=== PATIENT | male | born 1980 | race Hispanic/Latino ===

== ENCOUNTER 2018-02-08 08:07 | Emergency (ER) | payer BC ==
[2018-02-08] MEDS ORDERED: NA CHLORIDE 0.9% 1,000 ML ONE (08:49)
[2018-02-08] MEDS ORDERED: MORPHINE 4 MG/ML SYR ONE (08:49)
[2018-02-08] MEDS ORDERED: ONDANSETRON 4 MG/2 ML VIAL ONE (08:49)
[2018-02-08 09:06] LABS: Absolute Lymphocytes (CBC) 2.1 K/uL (0.7-4.9); Absolute Monocytes 0.5 K/uL (0.1-1.3); Absolute Neutrophil 4.8 K/uL (1.8-8.0); Hematocrit 44.2 % (39.6-49.0); Lymphocytes % 27.8 % (15.3-44.8); MCH 30.5 pg (27.0-35.0); MPV 9.5 fL (7.6-11.3); Monocytes % 6.8 % (3.3-12.3); RBC Red Blood Cell Count 4.97 M/uL (4.33-5.43)
[2018-02-08 09:08] LABS: ALT/SGPT 24 U/L (12-78); AST/SGOT 19 U/L (15-37); Albumin 3.6 g/dL (3.4-5.0); Alkaline Phosphatase 68 U/L (45-117); BUN Blood Urea Nitrogen 8 mg/dL (7-18); Bicarbonate 26 mmol/L (21-32); Bilirubin Direct 0.2 mg/dL (0-0.2); Bilirubin Total 0.6 mg/dL (0.2-1.0); Glucose Level 103 mg/dL (74-106); Lipase 139 U/L (73-393); Potassium 3.5 mmol/L (3.5-5.1); Protein, Total 7.2 g/dL (6.4-8.2); Sodium Level 142 mmol/L (136-145)
--- NOTE | 2018-02-08 11:06 | RAD REPORT ---
EXAM DESCRIPTION: CTAbdomen Pelvis W Contrast - 02/08/2018 10:47 am CLINICAL HISTORY: Abdominal pain. ABD PAIN COMPARISON: CT ABD PELVIS W CONTRAST dated 09/01/2014 TECHNIQUE: Biphasic CT imaging of the abdomen and pelvis was performed with 100 ml non-ionic IV cont rast. All CT scans are performed using dose optimization technique as appropriate and may include automated exposure control or mA/KV adjustment according to patient size. FINDINGS: The lung bases are clear. The liver demonstrates mild fatty liver. The spleen, pancreas, adrenal glands and kidneys are within normal limits. Gallstones are suspected the gallbladder. No bowel obstruction, free air, free fluid or abscess. The appendix is normal. No evidence of signi ficant lymphadenopathy. No suspicious bony findings. IMPRESSION: Cholelithiasis. Fatty liver.
--- NOTE | 2018-02-08 11:33 | EDPHYS ---
Physician Documentation [facility] Name: Eros Yan Age: 37 yrs Sex: Male : 1980 Arrival Date: 02/08/2018 Time: 08:09 Bed 8 Private MD: Gregor Solano H ED Physician Jose M Rain HPI: 02/08 11:26 This 37 yrs old Male presents to ER via Ambulatory with complaints of gs Abdominal Pain, Bloody Stools. 11:26 The patient presents to the emergency department with nausea, diarrhea, abdominal pain. gs Onset: The symptoms/episode began/occurred 1 month(s) ago, and became persistent. Possible causes: flare up of bowel problem. The symptoms are aggravated by food , The symptoms are alleviated by nothing. Severity of symptoms: At their worst the symptoms were moderate in the emergency department the symptoms are unchanged. The patient has experienced similar episodes in the past, multiple times, chronically. The patient has been recently seen by a physician: a senior construction estimator, scheduled for endoscopy in a couple of weeks. 11:29 Associated signs and symptoms: Pertinent positives: GI bleeding, blood in stool. gs Historical: - Allergies: 09:14 NKA; iw - PMHx: 08:32 Diabetes - NIDDM; High Cholesterol; Ulcers; iw - PSHx: 08:32 Knee surgery; iw - Immunization history:: Adult Immunizations up to date. - Ebola Screening: : Patient negative for fever greater than or equal to 101.5 degrees Fahrenheit, and additional compatible Ebola Virus Disease symptoms Patient denies exposure to infectious person Patient denies travel to an Ebola-affected area in the 21 days before illness onset No symptoms or risks identified at this time. - Social history:: Smoking status: Patient/guardian denies using tobacco, Patient/guardian denies using alcohol. ROS: 11:26 Constitutional: Negative for fever. gs 11:29 All other systems are negative. gs Exam: 11:29 Head/Face: Normocephalic, atraumatic. Eyes: Pupils equal round and reactive to light, gs extra-ocular motions intact. Lids and lashes normal. Conjunctiva and sclera are non-icteric and not injected. Cornea within normal limits. Periorbital areas with no swelling, redness, or edema. ENT: Nares patent. No nasal discharge, no septal abnormalities noted. Tympanic membranes are normal and external auditory canals are clear. Oropharynx with no redness, swelling, or masses, exudates, or evidence of obstruction, uvula midline. Mucous membranes moist. Neck: Trachea midline, no thyromegaly or masses palpated, and no cervical lymphadenopathy. Supple, full range of motion without nuchal rigidity, or vertebral point tenderness. No Meningismus. Chest/axilla: Normal chest wall appearance and motion. Nontender with no deformity. No lesions are appreciated. Cardiovascular: Regular rate and rhythm with a normal S1 and S2. No gallops, murmurs, or rubs. Normal PMI, no JVD. No pulse deficits. Respiratory: Lungs have equal breath sounds bilaterally, clear to auscultation and percussion. No rales, rhonchi or wheezes noted. No increased work of breathing, no retractions or nasal flaring. Back: No spinal tenderness. No costovertebral tenderness. Full range of motion. Skin: Warm, dry with normal turgor. Normal color with no rashes, no lesions, and no evidence of cellulitis. MS/ Extremity: Pulses equal, no cyanosis. Neurovascular intact. Full, normal range of motion. Neuro: Awake and alert, GCS 15, oriented to person, place, time, and situation. Cranial nerves II-XII grossly intact. Motor strength 5/5 in all extremities. Sensory grossly intact. Cerebellar exam normal. Normal gait. 11:29 Constitutional: The patient appears in no acute distress, alert, awake. 11:29 Abdomen/GI: Inspection: abdomen appears normal, Bowel sounds: normal, Palpation: mild abdominal tenderness, in all quadrants, rebound tenderness, is not appreciated. Vital Signs: 08:50 BP 130 / 82; Pulse 71; Resp 18; Temp 98.1(O); Pulse Ox 100% on R/A; Weight 110.22 kg; Height 5 ft. 9 in. (175.26 cm); Pain 10/10; 09:30 BP 134 / 74; Pulse 75; Resp 18; Pulse Ox 100% on R/A; hj 10:07 BP 123 / 78; Pulse 76; Resp 18; Pulse Ox 100% on R/A; hj 11:03 BP 121 / 78; Pulse 75; Resp 18; Pulse Ox 100% on R/A; hj 11:39 BP 123 / 71; Pulse 76; Resp 18; Pulse Ox 100% on R/A; hj 08:50 Body Mass Index 35.88 (110.22 kg, 175.26 cm) MDM: 08:29 Patient medically screened. 11:29 Differential diagnosis: Nonspecific abd pain, viral gastroenteritis, gastroenteritis, gs uc,crohn's. Data reviewed: vital signs, nurses notes. Counseling: I had a detailed discussion with the patient and/or guardian regarding: the historical points, exam findings, and any diagnostic results supporting the discharge/admit diagnosis, lab results, radiology results, the need for outpatient follow up. Response to treatment: the patient's symptoms have markedly improved after treatment. 02/08 08:31 Order name: Basic Metabolic Panel; Complete Time: :22 02/08 08:31 Order name: CBC with Diff; Complete Time: :22 02/08 08:31 Order name: Hepatic Function; Complete Time: 09:22 02/08 08:31 Order name: Lipase; Complete Time: :22 02/08 08:31 Order name: CT Abd/Pelvis - W/Contrast; Complete Time: 11:25 02/08 08:31 Order name: IV Saline Lock; Complete Time: 08:47 02/08 08:31 Order name: Labs collected and sent; Complete Time: 08:47 Administered Medications: 08:46 Drug: NS 0.9% 1000 ml Route: IV; Rate: 1 bolus; Site: left forearm; bp 10:00 Follow up: IV Status: Completed infusion; IV Intake: 1000ml 08:46 Drug: morphine 4 mg Route: IVP; Site: left forearm; bp 09:30 Follow up: Response: No adverse reaction; Pain is decreased 08:47 Drug: Zofran 4 mg Route: IVP; Site: left forearm; bp 09:30 Follow up: Response: No adverse reaction; Nausea is decreased Disposition: 02/08/18 11:32 Discharged to Home. Impression: Diarrhea, unspecified, Generalized abdominal pain. - Condition is Stable. - Discharge Instructions: Abdominal Pain, Adult, Chronic Diarrhea. - Prescriptions for Zofran 4 mg Oral Tablet - take 1 tablet by ORAL route every 12 hours As needed; 12 tablet. - Medication Reconciliation Form, Thank You Letter, Antibiotic Education, Prescription Opioid Use form. - Follow up: Private Physician; When: 2 - 3 days; Reason: Re-evaluation by your physician. Signatures: Dispatcher [employer] Yvette Arambula RN RN Silverio Sultana RN RN hj Starr, Gregory, MD MD gs Peltier, Brian, RN RN bp Corrections: (The following items were deleted from the chart) 11:53 11:32 02/08/2018 11:32 Discharged to Home. Impression: Diarrhea, unspecified; hj Generalized abdominal pain. Condition is Stable. Forms are Medication Reconciliation Form, Thank You Letter, Antibiotic Education, Prescription Opioid Use. Follow up: Private Physician; When: 2 - 3 days; Reason: Re-evaluation by your physician. gs
--- NOTE | 2018-02-08 11:33 | ER ---
Nurse's Notes [facility] Name: Eros Yan Age: 37 yrs Sex: Male : 1980 Arrival Date: 02/08/2018 Time: 08:09 Bed 8 Private MD: Gregor Solano H Diagnosis: Diarrhea, unspecified;Generalized abdominal pain Presentation: 02/08 08:27 Presenting complaint: Patient states: has hx of colitis,has had bloody stool for a iw month, dark,watery,2 days ago it was bright red,is due for a colonoscopy and EGD on 03-02-18, see GI in clear [place], also has upper abd pain. Transition of care: patient was not received from another setting of care. Onset of symptoms was January 2018. Risk Assessment: Do you want to hurt yourself or someone else? Patient reports no desire to harm self or others. Initial Sepsis Screen: Does the patient meet any 2 criteria? No. Patient's initial sepsis screen is negative. Does the patient have a suspected source of infection? No. Patient's initial sepsis screen is negative. Care prior to arrival: None. 08:27 Method Of Arrival: Ambulatory iw 08:27 Acuity: DUTCH 3 iw Triage Assessment: 08:48 General: Appears in no apparent distress. uncomfortable, Behavior is calm, cooperative, hj appropriate for age. Pain: Complains of pain in abdomen. GI: Reports lower abdominal pain, bloody stool, nausea. Historical: - Allergies: 09:14 NKA; iw - PMHx: 08:32 Diabetes - NIDDM; High Cholesterol; Ulcers; iw - PSHx: 08:32 Knee surgery; iw - Immunization history:: Adult Immunizations up to date. - Ebola Screening: : Patient negative for fever greater than or equal to 101.5 degrees Fahrenheit, and additional compatible Ebola Virus Disease symptoms Patient denies exposure to infectious person Patient denies travel to an Ebola-affected area in the 21 days before illness onset No symptoms or risks identified at this time. - Social history:: Smoking status: Patient/guardian denies using tobacco, Patient/guardian denies using alcohol. Screenin:48 Abuse screen: Denies threats or abuse. Denies injuries from another. Nutritional hj screening: No deficits noted. Tuberculosis screening: No symptoms or risk factors identified. Fall Risk None identified. Assessment: 08:49 GI: Bowel sounds present X 4 quads. Abd is soft Abd is non tender. hj 08:51 General: Appears in no apparent distress. uncomfortable, Behavior is calm, cooperative, hj appropriate for age. Pain: Complains of pain in abdomen. Neuro: Level of Consciousness is awake, alert, obeys commands, Oriented to person, place, time, situation, Appropriate for age. Cardiovascular: Capillary refill < 3 seconds Patient's skin is warm and dry. Respiratory: Airway is patent Respiratory effort is even, unlabored, Respiratory pattern is regular, symmetrical. GI: Reports lower abdominal pain, bloody stool, nausea. : No signs and/or symptoms were reported regarding the genitourinary system. EENT: No signs and/or symptoms were reported regarding the EENT system. Derm: No signs and/or symptoms reported regarding the dermatologic system. Musculoskeletal: No signs and/or symptoms reported regarding the musculoskeletal system. 09:01 Reassessment: pt finished contrast; net technical architect informed;. hj 09:29 Reassessment: Patient and/or family updated on plan of care and expected duration. Pain hj level reassessed. Patient is alert, oriented x 3, equal unlabored respirations, skin warm/dry/pink. awaiting results and POC:. 10:07 Reassessment: Patient and/or family updated on plan of care and expected duration. Pain hj level reassessed. Patient is alert, oriented x 3, equal unlabored respirations, skin warm/dry/pink. awaiting CT:. 10:51 Reassessment: PT RETURNED FROM CT. bp 11:37 Reassessment: provider in room; D/C instructions given;. hj Vital Signs: 08:50 BP 130 / 82; Pulse 71; Resp 18; Temp 98.1(O); Pulse Ox 100% on R/A; Weight 110.22 kg; hj Height 5 ft. 9 in. (175.26 cm); Pain 1010; 09:30 BP 134 / 74; Pulse 75; Resp 18; Pulse Ox 100% on R/A; hj 10:07 BP 123 / 78; Pulse 76; Resp 18; Pulse Ox 100% on R/A; hj 11:03 BP 121 / 78; Pulse 75; Resp 18; Pulse Ox 100% on R/A; hj 11:39 BP 123 / 71; Pulse 76; Resp 18; Pulse Ox 100% on R/A; hj 08:50 Body Mass Index 35.88 (110.22 kg, 175.26 cm) ED Course: 08:09 Patient arrived in ED. mr 08:10 Gregor Solano DO is Private Physician. mr 08:19 oJse M Rain MD is Attending Physician. gs 08:24 Silverio Morales, LAKESHA is Primary Nurse. hj 08:31 Triage completed. iw 08:45 Initial lab(s) drawn, by me, sent to lab. Inserted saline lock: 22 gauge in left hj forearm, using aseptic technique. Blood collected. 08:49 Arm band placed on right wrist. hj 08:50 Patient has correct armband on for positive identification. Placed in gown. Bed in low hj position. Call light in reach. Side rails up X 1. 10:[address] via wheelchair. vr 10:45 CT completed. Patient tolerated procedure well. Patient moved back from CT. vr 10:46 CT Abd/Pelvis - W/Contrast In Process Unspecified. EDMS 11:41 No provider procedures requiring assistance completed. IV discontinued, intact, hj bleeding controlled, No redness/swelling at site. Pressure dressing applied. Administered Medications: 08:46 Drug: NS 0.9% 1000 ml Route: IV; Rate: 1 bolus; Site: left forearm; bp 10:00 Follow up: IV Status: Completed infusion; IV Intake: 1000ml hj 08:46 Drug: morphine 4 mg Route: IVP; Site: left forearm; bp 09:30 Follow up: Response: No adverse reaction; Pain is decreased hj 08:47 Drug: Zofran 4 mg Route: IVP; Site: left forearm; bp 09:30 Follow up: Response: No adverse reaction; Nausea is decreased hj Intake: 10:00 IV: 1000ml; Total: 1000ml. Outcome: 11:32 Discharge ordered by . gs 11:41 Discharged to home ambulatory, with family. hj 11:41 Condition: stable 11:41 Discharge instructions given to patient, family, Instructed on discharge instructions, follow up and referral plans. medication usage, Demonstrated understanding of instructions, follow-up care, medications, Prescriptions given X 1. 11:53 Patient left the ED. Signatures: Dispatcher [employer] EDAZ Beatris Bradford mr Yvette Thompson, RN RN Leslie Covarrubias Henry, RN RN Jose M Mahoney MD MD gs Peltier, Brian, RN RN bp
[2018-02-08 11:59] VITALS: TEMP 98.1; O2SAT 100
[2018-02-08 12:04] VITALS: BP 123/71
== END 2018-02-08 11:53 | disposition home or self-care (01) ==
LOC: ER 08:07
DX: R19.7 Diarrhea, unspecified (principal)
CPT/HCPCS: 36415; 74177; 80048; 80076; 83690; 85025; 96361; 96374; 96375; 99284; J2405; J7030; Q9967

== ENCOUNTER 2018-09-13 10:35 | Inpatient (IN) | payer BC ==
[2018-09-13] MEDS ORDERED: ONDANSETRON 4 MG/2 ML VIAL ONE (12:02)
[2018-09-13] MEDS ORDERED: MEPERIDINE HCL 25 MG/0.5 ML ONE ×3 (12:02→17:55)
[2018-09-13] MEDS ORDERED: NA CHLORIDE 0.9% 1,000 ML ONE (12:02)
[2018-09-13 12:10] LABS: Absolute Lymphocytes (CBC) 1.4 K/uL (0.7-4.9); Absolute Monocytes 0.4 K/uL (0.1-1.3); Absolute Neutrophil 13.1 K/uL (1.8-8.0); Basophils % 0.7 % (0-1.3); Hematocrit 47.3 % (39.6-49.0); Lymphocytes % 9.1 % (15.3-44.8); MPV 9.4 fL (7.6-11.3); Monocytes % 2.7 % (3.3-12.3); RBC Red Blood Cell Count 5.42 M/uL (4.33-5.43)
[2018-09-13 12:24] LABS: ALT/SGPT 31 U/L (12-78); AST/SGOT 17 U/L (15-37); Albumin 4.4 g/dL (3.4-5.0); Alkaline Phosphatase 90 U/L (45-117); BUN Blood Urea Nitrogen 10 mg/dL (7-18); Bicarbonate 26 mmol/L (21-32); Bilirubin Direct 0.1 mg/dL (0-0.2); Bilirubin Total 0.6 mg/dL (0.2-1.0); Glucose Level 122 mg/dL (74-106); Lipase 97 U/L (73-393); Potassium 4.1 mmol/L (3.5-5.1); Protein, Total 8.8 g/dL (6.4-8.2); Sodium Level 138 mmol/L (136-145)
--- NOTE | 2018-09-13 12:26 | RAD REPORT ---
EXAM DESCRIPTION: US - Abdomen Exam Limited - 09/13/2018 11:52 am CLINICAL HISTORY: Abd pain;Nausea / vomiting COMPARISON: No comparisons FINDINGS: The gallbladder demonstrates multiple shadowing gallstones. No pericholecystic fluid or ga llbladder wall thickening. The common bile duct is normal measuring 5-6 mm.. The liver demonstrates no findings of intrahepatic biliary dilatation. IMPRESSION: Cholelithiasis.
[2018-09-13 12:48] LABS: Blood Morphology Comment NOT SEEN (NOT SEEN); Platelet Estimate ADEQ; Urine White Blood Cell Casts OK
--- NOTE | 2018-09-13 13:59 | RAD REPORT ---
EXAM DESCRIPTION: CT - Abdomen Pelvis W Contrast - 09/13/2018 1:46 pm CLINICAL HISTORY: Abdominal pain. Epigastric pain COMPARISON: February 2018 TECHNIQUE: Computed axial tomography of the abdomen and pelvis was obtained. 100 cc Isovue-300 is ad ministered intravenously. Oral contrast was given. All CT scans are performed using dose optimization technique as appropriate and may include automated exposure control or mA/KV adjustment according to patient size. FINDINGS: Gallstones. Gallbladder wall is not thickened. Biliary tree normal caliber Mild fatty liver The liver, spleen, pancreas, adrenals and kidneys appear unremarkable. The appendix is normal caliber. There is no evidence of diverticulitis A 4.5 centimeter soft tissue structure is present within the posterior gastric fundus IMPRESSION: Cholelithiasis without evidence cholecystitis 4.5 centimeter soft tissue structure within the posterior gastric fundus may represent recently inges [employer] food. If the patient has not recently eaten then this could represent a mass.
--- NOTE | 2018-09-13 15:12 | ER ---
Nurse's Notes [facility] Name: Eros Yan Age: 38 yrs Sex: Male : 1980 Arrival Date: 09/13/2018 Time: 10:36 Bed 26 Private MD: Gregor Solano H Diagnosis: Cholelithiasis;Gastric mass;Intractable abdominal pain Presentation: 09/13 10:56 Presenting complaint: Patient states: epigastric pain and vomiting x 1 day. Denies sv nausea and dizziness. Transition of care: patient was not received from another setting of care. Onset of symptoms was September 12, 2018. Initial Sepsis Screen: Does the patient meet any 2 criteria? No. Patient's initial sepsis screen is negative. Does the patient have a suspected source of infection? No. Patient's initial sepsis screen is negative. Care prior to arrival: None. 10:56 Method Of Arrival: Ambulatory sv 10:56 Acuity: DUTCH 3 sv 16:57 Risk Assessment: Do you want to hurt yourself or someone else? Patient reports no rv desire to harm self or others. Historical: - Allergies: 10:57 NKA; sv - PMHx: 10:57 Diabetes - NIDDM; High Cholesterol; Ulcers; Ulcerative colitis; sv - PSHx: 10:57 Knee surgery; sv - Immunization history:: Adult Immunizations up to date. - Social history:: Smoking status: unknown. - Family history:: not pertinent. - Ebola Screening: : No symptoms or risks identified at this time. - Hospitalizations: : No recent hospitalization is reported. Screenin:55 Abuse screen: Denies threats or abuse. Denies injuries from another. Nutritional rv screening: No deficits noted. Tuberculosis screening: No symptoms or risk factors identified. Fall Risk None identified. Assessment: 11:52 General: Appears in no apparent distress. comfortable, Behavior is calm, cooperative, aj appropriate for age. Pain: Complains of pain in epigastric area, right upper quadrant and left upper quadrant. Neuro: Level of Consciousness is awake, alert, obeys commands, Oriented to person, place, time, situation, Appropriate for age. Respiratory: Airway is patent Respiratory effort is even, unlabored, Respiratory pattern is regular, symmetrical. GI: Abdomen is non-distended, obese, Bowel sounds present X 4 quads. Abd is soft and non tender X 4 quads. Derm: Skin is intact, is healthy with good turgor, Skin is pink, warm \T\ dry. normal. 16:58 Reassessment: Patient appears in no apparent distress at this time. Patient and/or rv family updated on plan of care and expected duration. Pain level reassessed. Patient is alert, oriented x 3, equal unlabored respirations, skin warm/dry/pink. PAIN STARTING TO COMEBACK. PATIENT IS FOR ADMISSION. Patient states symptoms have improved. Vital Signs: 10:57 BP 150 / 75; Pulse 73; Resp 20; Temp 98.1; Pulse Ox 98% ; Weight 117.93 kg; Height 5 sv ft. 8 in. (172.72 cm); Pain 10/10; 12:34 BP 137 / 77; Pulse 62; Resp 20; Temp 98.4(O); Pulse Ox 100% ; lt1 13:52 BP 137 / 91; Pulse 66; Resp 19; Pulse Ox 100% on R/A; aj 16:55 Temp 99.1(O); lt1 10:57 Body Mass Index 39.53 (117.93 kg, 172.72 cm) sv ED Course: 10:36 Patient arrived in ED. mr 10:36 Gregor Solano DO is Private Physician. mr 10:56 Triage completed. sv 10:57 Arm band placed on. sv 11:28 Ezra Clay MD is Attending Physician. rn 11:41 Dilma Reeder RN is Primary Nurse. aj 11:52 US Abdomen Limited In Process Unspecified. EDMS 11:59 Initial lab(s) drawn, by me, sent to lab. Inserted saline lock: 22 gauge in left. lt1 13:40 CT completed. Patient tolerated procedure well. Patient moved to CT via wheelchair. ls3 Patient moved back from CT. 13:45 CT Abd/Pelvis - W/Contrast In Process Unspecified. EDMS 15:00 Patient has correct armband on for positive identification. Bed in low position. Call rv light in reach. Side rails up X 1. Adult w/ patient. 15:00 Pulse ox on. NIBP on. rv 15:10 Samantha Alcala MD is Hospitalizing Provider. rn 17:52 No provider procedures requiring assistance completed. Patient admitted, IV remains in rv place. Administered Medications: 12:00 Drug: Zofran 4 mg Route: IVP; Site: left antecubital; aj 13:40 Follow up: Response: Nausea is decreased aj 12:00 Drug: NS 0.9% 1000 ml Route: IV; Rate: 1000 ml; Site: left antecubital; aj 16:00 Follow up: IV Status: Completed infusion; IV Intake: 1000ml rv 12:36 Drug: Demerol 25 mg Route: IVP; Site: left antecubital; aj 13:39 Follow up: Response: Pain is decreased aj 14:24 Drug: Demerol 25 mg Route: IVP; Site: left antecubital; aj 16:00 Follow up: Response: Pain is decreased rv 16:45 Drug: Demerol 25 mg Route: IVP; Site: left antecubital; rv 17:52 Follow up: Response: Medication administered at discharge. rv Intake: 16:00 IV: 1000ml; Total: 1000ml. rv Outcome: 15:11 Decision to Hospitalize by Provider. rn 17:52 Admitted to Med/surg accompanied by tech, via wheelchair, room 229, with chart, Report rv called to [id number] 17:52 Condition: good 17:52 Instructed on the need for admit. 17:53 Patient left the ED. rv Signatures: Dispatcher [employer] EDNohemy Donald RN RN sv Myers, Amanda, RN RN aj Rivera, Mary mr Ezra Clay MD MD rn Vicente, Ronaldo, RN RN rv Siler, Lynzie ls3 Sabina Zayas lt1 Corrections: (The following items were deleted from the chart) 10:58 10:57 Pulse 73bpm; Resp 20bpm; Pulse Ox 98%; Temp 98.1F; 117.93 kg; Height 5 ft. 8 in.; sv BMI: 39.5; Pain 10/10; sv
--- NOTE | 2018-09-13 15:12 | EDPHYS ---
Physician Documentation [facility] Name: Eros Yan Age: 38 yrs Sex: Male : 1980 Arrival Date: 09/13/2018 Time: 10:36 Bed 26 Private MD: Gregor Solano H ED Physician Ezra Clay HPI: 09/13 12:46 This 38 yrs old Male presents to ER via Ambulatory with complaints of rn Abdominal Pain. 12:46 The patient presents with abdominal pain in the epigastric area. Onset: The rn symptoms/episode began/occurred last night. The symptoms do not radiate. Associated signs and symptoms: Pertinent positives: nausea and vomiting, Pertinent negatives: diarrhea, dysuria, fever, hematuria, shortness of breath, testicular pain, vomiting blood. Modifying factors: The symptoms are alleviated by nothing, the symptoms are aggravated by nothing. Severity of pain: At its worst the pain was moderate in the emergency department the pain is unchanged. The patient has experienced similar episodes in the past. Reports epigastric pain since last night, + vomiting, no diarrhea, no blood in emesis or stool. Reports 1 doctor told him he had ulcerative colitis, another GI doctor told him doesn't have UC just infection. . Historical: - Allergies: 10:57 NKA; sv - PMHx: 10:57 Diabetes - NIDDM; High Cholesterol; Ulcers; Ulcerative colitis; sv - PSHx: 10:57 Knee surgery; sv - Immunization history:: Adult Immunizations up to date. - Social history:: Smoking status: unknown. - Family history:: not pertinent. - Ebola Screening: : No symptoms or risks identified at this time. - Hospitalizations: : No recent hospitalization is reported. ROS: 12:46 Constitutional: Negative for fever, chills, and weight loss, Eyes: Negative for injury, rn pain, redness, and discharge, Neck: Negative for injury, pain, and swelling, Cardiovascular: Negative for chest pain, palpitations, and edema, Respiratory: Negative for shortness of breath, cough, wheezing, and pleuritic chest pain, Abdomen/GI: + abd pain/nausea/vomiting MS/Extremity: Negative for injury and deformity, Skin: Negative for injury, rash, and discoloration, Neuro: Negative for headach, numbness, tingling, and seizure. Exam: 12:46 Constitutional: This is a well developed, well nourished patient who is awake, alert, rn appears uncomfortable Head/Face: Normocephalic, atraumatic. Eyes: Pupils equal round and reactive to light, extra-ocular motions intact. Lids and lashes normal. Conjunctiva and sclera are non-icteric and not injected. Cornea within normal limits. Periorbital areas with no swelling, redness, or edema. ENT: MMM Respiratory: No increased work of breathing, no retractions or nasal flaring. Abdomen/GI: soft, mild epigastric/RUQ/LUQ tenderness MS/ Extremity: Pulses equal, no cyanosis. Neurovascular intact. Full, normal range of motion. Equal circumference. Neuro: Awake and alert, GCS 15, oriented to person, place, time, and situation. Cranial nerves II-XII grossly intact. Motor strength 5/5 in all extremities. Sensory grossly intact. Cerebellar exam normal. Normal gait. Vital Signs: 10:57 BP 150 / 75; Pulse 73; Resp 20; Temp 98.1; Pulse Ox 98% ; Weight 117.93 kg; Height 5 sv ft. 8 in. (172.72 cm); Pain 10/10; 12:34 BP 137 / 77; Pulse 62; Resp 20; Temp 98.4(O); Pulse Ox 100% ; lt1 13:52 BP 137 / 91; Pulse 66; Resp 19; Pulse Ox 100% on R/A; aj 16:55 Temp 99.1(O); lt1 10:57 Body Mass Index 39.53 (117.93 kg, 172.72 cm) sv MDM: 11:28 Patient medically screened. rn 15:08 Differential diagnosis: cholecystitis, Cholelithiasis, gastritis, gastroesophageal rn reflux disease, pancreatitis, Peptic Ulcer Disease. Data reviewed: vital signs, nurses notes, lab test result(s), radiologic studies, CT scan, ultrasound, and as a result, I will admit patient. Counseling: I had a detailed discussion with the patient and/or guardian regarding: the historical points, exam findings, and any diagnostic results supporting the discharge/admit diagnosis, lab results, radiology results, the need for further work-up and treatment in the hospital. Response to treatment: the patient's symptoms have mildly improved after treatment, and as a result, I will admit patient. ED course: Admitted to Dr. Alcala for cholelithiasis and possible gastric mass. Will admit for GI and surgical consult. . 09/13 11:35 Order name: Basic Metabolic Panel; Complete Time: 14:07 rn 09/13 11:35 Order name: CBC with Diff; Complete Time: 14:07 rn 09/13 11:35 Order name: Hepatic Function; Complete Time: 14:07 rn 09/13 11:35 Order name: Lipase; Complete Time: 14:07 rn 09/13 11:35 Order name: US Abdomen Limited; Complete Time: 14:07 rn 09/13 12:17 Order name: CBC Smear Scan; Complete Time: 14:07 EDMS 09/13 11:35 Order name: IV Saline Lock; Complete Time: 12:00 rn 09/13 11:35 Order name: Labs collected and sent; Complete Time: 12:00 rn 09/13 11:35 Order name: CT Abd/Pelvis - W/Contrast; Complete Time: 14:07 rn Administered Medications: 12:00 Drug: Zofran 4 mg Route: IVP; Site: left antecubital; aj 13:40 Follow up: Response: Nausea is decreased aj 12:00 Drug: NS 0.9% 1000 ml Route: IV; Rate: 1000 ml; Site: left antecubital; aj 16:00 Follow up: IV Status: Completed infusion; IV Intake: 1000ml rv 12:36 Drug: Demerol 25 mg Route: IVP; Site: left antecubital; aj 13:39 Follow up: Response: Pain is decreased aj 14:24 Drug: Demerol 25 mg Route: IVP; Site: left antecubital; aj 16:00 Follow up: Response: Pain is decreased rv 16:45 Drug: Demerol 25 mg Route: IVP; Site: left antecubital; rv 17:52 Follow up: Response: Medication administered at discharge. rv Disposition: 09/13/18 15:11 Hospitalization ordered by Samantha Aclala for Inpatient Admission. Preliminary diagnosis are Cholelithiasis, Gastric mass, Intractable abdominal pain. - Bed requested for Telemetry/MedSurg (Inpatient). - Status is Inpatient Admission. rv - Condition is Stable. - Problem is new. - Symptoms are unchanged. UTI on Admission? No Signatures: Dispatcher [employer] EDMS Nohemy Akbar, RN Lashonda Caruso, RN Dilma Kelly, RN Ezra Osorio MD MD rn Vicente, Ronaldo, RN RN rv Corrections: (The following items were deleted from the chart) 16:45 15:11 Hospitalization Ordered by Samantha Alcala MD for Inpatient Admission. Preliminary dw diagnosis is Cholelithiasis; Gastric mass; Intractable abdominal pain. Bed requested for Telemetry/MedSurg (Inpatient). Status is Inpatient Admission. Condition is Stable. Problem is new. Symptoms are unchanged. UTI on Admission? No. rn 17:17 16:45 09/13/2018 15:11 Hospitalization Ordered by Samantha Alcala MD for Inpatient dw Admission. Preliminary diagnosis is Cholelithiasis; Gastric mass; Intractable abdominal pain. Bed requested for Telemetry/MedSurg (Inpatient). Status is Inpatient Admission. Condition is Stable. Problem is new. Symptoms are unchanged. UTI on Admission? No. dw 17:53 17:17 09/13/2018 15:11 Hospitalization Ordered by Samantha Alcala MD for Inpatient rv Admission. Preliminary diagnosis is Cholelithiasis; Gastric mass; Intractable abdominal pain. Bed requested for Telemetry/MedSurg (Inpatient). Status is Inpatient Admission. Condition is Stable. Problem is new. Symptoms are unchanged. UTI on Admission? No. dw
[2018-09-13] MEDS ORDERED: ONDANSETRON 4 MG/2 ML VIAL IV PRN (17:41)
[2018-09-13 18:08] VITALS: BMI 39.5
[2018-09-13] MEDS: NA CHLORIDE 0.9% 1,000 ML IV SCH (18:13)
--- NOTE | 2018-09-13 19:07 | P.HP ---
Certification for Inpatient Patient admitted to: Observation With expected LOS: <2 Midnights Practitioner: I am a practitioner with admitting privileges, knowledge of patient current condition, hospital course, and medical plan of care. Services: Services provided to patient in accordance with Admission requirements found in Title 42 Section 412.3 of the Code of Federal Regulations Patient History Date of Service: 09/13/18 Reason for admission: Abdominal pain History of Present Illness: This is a 38-year-old male with a questionable history of ulcerative colitis admitted for epigastric pain. Per patient, this is the upper abdomen/ midepigastric pain that started a few days ago that has been progressively worsening. His describes this as a throbbing type and pain, no radiation. Associated with nausea and vomiting. States that the vomitus is nonbloody and has had a couple episodes throughout the day. Last episode was 02/1930 this morning. Also complaining of intermittent diarrhea that is nonbloody, watery and mucousy. Denies any chest pain, dizziness, headache, vision changes, or complaints. He came to the ER and his GI doctor recommended him getting a HIDA scan. He currently sees in [place] for his gastroenterology. In the ER, he was hemodynamically stable, lab work was fairly unremarkable. Lipase is normal. Abdominal ultrasound was positive for cholelithiasis, no cholecystitis and no common bile duct dilatation. His CT scan abdomen was positive for cholelithiasis without cholecystitis along with a 4.5 cm soft tissue structure within the posterior gastric fundus - ingested food versus mass. He received Demerol 25 mg x2, Zofran and IV fluids. At the time of my exam, he is alert oriented x3, sleeping comfortably in no acute distress. He was hemodynamically stable. He was admitted for further GI workup and management. Allergies No Known Drug Allergies Allergy (Verified 06/27/16 08:00) Unknown Home medications list reviewed: Yes Home Medications: NK [No Home Meds] 09/13/18 - Past Medical/Surgical History Has patient received pneumonia vaccine in the past: No Diabetic: No -: borderline diabetic -: high cholesterol - Family History Mother -: Diabetes - Social History Smoking Status: Never smoker Alcohol use: No CD- Drugs: No Caffeine use: No Place of Residence: Home Review of Systems 10-point ROS is otherwise unremarkable Physical Examination - Vital Signs Temperature: 99.2 F Blood Pressure: 143/67 Pulse: 63 Respirations: 16 Pulse Ox (%): 98 - Physical Exam General: Alert, In no apparent distress, Obese HEENT: Atraumatic, PERRLA, Mucous membr. moist/pink, EOMI, Sclerae nonicteric Neck: Supple, 2+ carotid pulse no bruit, No LAD, Without JVD or thyroid abnormality Respiratory: Clear to auscultation bilaterally, Normal air movement Cardiovascular: Regular rate/rhythm, Normal S1 S2 Gastrointestinal: Normal bowel sounds, Tenderness Musculoskeletal: No tenderness Integumentary: No rashes Neurological: Normal gait, Normal speech, Normal strength at 5/5 x4 extr, Normal tone, Normal affect Lymphatics: No axilla or inguinal lymphadenopathy - Studies Laboratory Data (last 24 hrs) 09/13/18 11:56: WBC 15.0 H, Hgb 16.4, Hct 47.3, Plt Count 331 09/13/18 11:56: Sodium 138, Potassium 4.1, BUN 10, Creatinine 0.84, Glucose 122 H, Total Bilirubin 0.6, AST 17, ALT 31, Alkaline Phosphatase 90, Lipase 97 Assessment and Plan - Problems (Diagnosis) (1) Abdominal pain Current Visit: Yes Status: Acute Plan: Unsure of etiology, though this could be secondary to the cholelithiasis versus gastritis versus reflux Discussed case with Dr. Farley, he will see patient tomorrow. Pain control with IV pain medication Zofran for nausea Continue to keep NPO Qualifiers: Abdominal location: epigastric Qualified Code(s): R10.13 - Epigastric pain (2) Abnormal abdominal CT scan Current Visit: Yes Status: Acute Plan: Noted to have a 4.5 cm soft tissue structure within the posterior gastric fundus - ingested food versus mass. Patient with abdominal CT scan lash year with cholelithiasis, no mass. Patient states that he had an endoscopy lash years well, not suspicious for any masses of that time either. (3) Leukocytosis Current Visit: Yes Status: Acute Plan: Likely reactive versus dehydration Will continue IV fluids and continue to monitor. Qualifiers: Leukocytosis type: unspecified Qualified Code(s): D72.829 - Elevated white blood cell count, unspecified (4) Obesity (BMI 35.0-39.9 without comorbidity) Current Visit: No Status: Chronic (5) Diabetes mellitus Current Visit: No Status: Chronic Plan: Accu-Cheks and mild sliding scale insulin. Will continue to monitor and adjust as needed Qualifiers: Diabetes mellitus type: type 2 Diabetes mellitus halfway insulin use: without halfway use (6) Hyperlipidemia Current Visit: Yes Status: Acute - Plan DVT prophylaxis: None,encouraged ambulation GI prophylaxis: Protonix Diet:, NPO Disposition: Admit to floor for observation. Pending GI evaluation. Anticipate discharge in the next 24-48 hr pending clinical improvement - Advance Directives Does patient have a Living Will: No Does patient have a Durable POA for Healthcare: No
[2018-09-13] MEDS ORDERED: SODIUM CHLORIDE 0.9% 10ML INJ IV PRN (19:13)
[2018-09-13] MEDS: INSULIN -REGULAR HUMAN 50 UNIT/0.5 ML ML SQ SCH (21:00)
[2018-09-13] MEDS: MEPERIDINE HCL 25 MG/0.5 ML IV PRN (21:48)
[2018-09-14] MEDS: NA CHLORIDE 0.9% 1,000 ML IV SCH ×3 (03:27→20:49)
[2018-09-14 05:52] LABS: Absolute Monocytes 0.9 K/uL (0.1-1.3); Absolute Neutrophil 8.7 K/uL (1.8-8.0); Basophils % 0.6 % (0-1.3); Eosinophils % 0.4 % (0-4.4); Hematocrit 42.5 % (39.6-49.0); Lymphocytes % 23.9 % (15.3-44.8); MPV 8.9 fL (7.6-11.3); Monocytes % 6.7 % (3.3-12.3); RBC Red Blood Cell Count 4.84 M/uL (4.33-5.43)
[2018-09-14 06:07] LABS: Magnesium 2.1 mg/dL (1.8-2.4); Phosphorus 3.4 mg/dL (2.5-4.9)
[2018-09-14] MEDS: MEPERIDINE HCL 25 MG/0.5 ML IV PRN ×4 (06:09→20:25)
[2018-09-14 06:13] LABS: Albumin 3.4 g/dL (3.4-5.0); Bilirubin Total 0.8 mg/dL (0.2-1.0); Potassium 3.9 mmol/L (3.5-5.1)
[2018-09-14] MEDS: INSULIN -REGULAR HUMAN 50 UNIT/0.5 ML ML SQ SCH ×4 (07:30→20:43)
[2018-09-14 08:40] LABS: Urine Appearance CLEAR; Urine Bilirubin NEGATIVE (NEG); Urine Blood NEGATIVE (NEG); Urine Color YELLOW; Urine Glucose NEGATIVE (NEG); Urine Protein NEGATIVE (NEG); Urine Specific Gravity 1.025 (1.005-1.030); Urine Urobilinogen 0.2 mg/dL (0.2-1.0); Urine pH 5.5 (5.0-7.0)
[2018-09-14] MEDS: PANTOPRAZOLE 40 MG INJ IVP SCH (09:10)
[2018-09-14 09:21] LABS: Urine Microscopic Reflex NO UMIC
[2018-09-14] MEDS: CEFTRIAXONE/SWI 1gm 1 GM/10 ML SYR IV SCH ×2 (10:01→20:30)
--- NOTE | 2018-09-14 15:04 | CON ---
Additional Attending Physician: Dr. Alcala. Additional Consulting Physician: Alcides Farley MD Reason For Consultation: Abnormal imaging, nausea, vomiting. History Of Presenting Illness: This is a 38-year-old gentleman, came to the ER with complaints of epigastric pain started a few days ago associated with nausea , vomiting. The patient has had multiple episodes of similar symptoms for the past several years. He also states that there is also questionable history of ulcerative colitis, but not proven by any biopsies. The patient has been seeing Dr. Viet Fish in [place] and has had an EGD in April of last year, which is a few months ago and the only finding was gastritis as per the patient. He also had loose diarrhea. GI consultation was requested for the CT findings. Allergies: NO KNOWN DRUG ALLERGIES. Home Medications: None. Past Medical History: Obesity, borderline diabetes, dyslipidemia. Past Surgical History: Noncontributory to the current issue. Social History: Denies toxic habits. Family History: Noncontributory. Review of Systems: GI: As in HPI, otherwise negative. Remainder of 10-point review of system is negative. Physical Examination: Vital Signs: Temperature 99.2, blood pressure 143/67, pulse 63, respiratory rate 16. HEENT: Head; atraumatic, normocephalic. Pupils equally reactive. Neck: Supple. Chest: Clear to auscultation. Abdomen: Soft. Mild epigastric tenderness. Bowel sounds present. Extremities: No pedal edema. [employer]: Alert and oriented x3. CVS: S1, S2 plus. Laboratory Data: Reviewed. He does have some mild leukocytosis, normal hemoglobin, normal liver enzymes and normal lipase. Imaging: Ultrasound revealed cholelithiasis. Normal CBD. Also CT scans revealed cholelithiasis. Also suspicion of a 4.5 cm soft tissue structure in the gastric fundus, which may be recently ingested food. I did also look at the report from [address] scans, which had no similar findings. Also, as per the patient, if he has had a recent EGD, the finding likely is ingested food. Impression: A 38-year-old gentleman with epigastric pain, nausea, vomiting, cholelithiasis, likely symptomatic cholelithiasis. Diarrhea, unknown etiology Plan: Continue current management. I will put him on a cephalosporin for the gallbladder and surgical evaluation. I would also recommend getting EGD reports from Dr. Fish's office. No GI intervention planned at this point. Can consider outpatient endoscopy to completely rule out the gastric findings, which can be done prior to or post cholecystectomy. For the diarrhea, stool w/u already ordered and will follow. US/MODL Voice ID: [id number] Report ID: [id number]
--- NOTE | 2018-09-14 18:40 | PN ---
Date of Progress Note: 09/14/2018 Subjective: The patient was seen and examined. Chart reviewed and case discussed with RN and Dr. Nathalie marte. The patient is still having some abdominal pain and nausea. No vomiting. Medications: List reviewed. Objective: Vital Signs: Temperature 97.1, heart rate 61, blood pressure 100/60, respirations 15, O2 97% on room air. General: Awake, alert, oriented x3, in some mild distress due to pain. Morbidly obese male. CV: S1, S2. Regular rate and rhythm. Peripheral pulses present. Respiratory: Moving air well bilaterally. No wheezing or stridor. No use of accessory muscles. Gastrointestinal: Abdomen is soft. Tenderness to palpation in the right upper quadrant. No guardin g or rigidity. Bowel sounds positive. Extremities: No clubbing, cyanosis, or edema. Neurologic: Nonfocal. Laboratory Data: Sodium 140, potassium 3.9, chloride 107, CO2 of 29, BUN 8, creatinine 0.97, glucose 103, calcium 8.6, phosphorus 3.4, magnesium 2.1. Total bilirubin 0.8, AST 15, ALT 24, alkaline phos phatase 74. WBC 12.8, H and H 14.9 and 42.5, platelets 290, neutrophils 68%. C. diff assay is pendi ng. Assessment And Plan: A 38-year-old male with: 1.Right upper quadrant abdominal pain secondary to acute cholecystitis. We will add IV antibiotics. Dr. Farley does not recommend any scope at this time. Recommend General Surgery evaluation for c holecystectomy. We will continue with IV pain medications. Keep n.p.o. Continue antiemetics. 2.Abnormal CT scan, 4.5 cm soft tissue structure in the posterior gastric fundus is likely ingested food compared to previous CTs recently, mass not present. The patient had recent scope in April, no masses were found at that time. GI does not recommend repeat scope at this juncture. 3.Leukocytosis, improving, likely reactive. 4.Morbid obesity, body mass index of 40. 5.Diabetes mellitus type 2 without long-term use of insulin with hyperglycemia. Continue sliding sc agustin insulin and monitor blood glucose levels. 6.Hyperlipidemia. Resume home medications. Plan: GI and DVT prophylaxis. No chemical anticoagulation due to possible surgical intervention. C ontinue SCDs. Continue Protonix for GI prophylaxis. General Surgery evaluation for possible cholecy stectomy. /IGOR Voice ID: [id number] Report ID: [id number]
[2018-09-14] MEDS: VANCOMYCIN ORAL SOLN 250 MG/5 ML OSYR PO SCH (18:49)
[2018-09-14] MEDS ORDERED: GLUCAGON 1 MG/VIAL IM PRN (20:09)
[2018-09-14] MEDS: D50W 25 GM/50 ML SYRINGE IV PRN (20:48)
--- NOTE | 2018-09-14 21:25 | CON ---
Date of Consultation: 09/14/2018 Brief History Of Present Illness: The patient is a 38-year-old male with a questionable his tory of ulcerative colitis, admitted for epigastric pain. The pain was in the upper mid epigastric a ofe, it started a few days ago and being progressively worsening. He says it was throbbing type with out radiation and associated with some nausea, vomiting, which was nonbloody at that time. He said jerrod herrmann has had multiple episodes like this in the past and was told he had gallstones. He had also compla ints of gastrointestinal bleeding in the past, which was melenic by his description, but he has had a n EGD and colonoscopy, which he states did not display a cause of this. He came to the ER. His GI d octor recommended getting HIDA scan. He currently sees Dr. Fish in [place] for GI. Past Medical History: Significant for borderline diabetes and high cholesterol. Past Surgical History: Denies. Allergies: NO KNOWN DRUG ALLERGIES. Social History: He denies smoking, alcohol, or recreational drug use. Family History: Noncontributory. Home Medications: None. Review of Systems: A 10-point review of systems other than HPI, denies. Physical Examination: Vital Signs: At the time of my examination. BMI is 39.5. His blood pressure was 102/60, pulse was 58, respiratory rate 16, temperature 97.6. General: He is awake, alert, and oriented. Psychiatric: He is appropriate. Conversive. He is in no apparent distress. HEENT: He is normocephalic. His sclerae are anicteric. His mucous membranes are moist. His oropha rynx is clear. Neck: Supple. No JVD. Chest: Normal expansion and excursion. Cardiovascular: Regular rate and rhythm. Pulmonary: Clear to auscultation bilaterally. Abdomen: Soft with mild epigastric tenderness. Negative Romero's. No rebound or guarding. No foca l peritonitis. Extremities: No clubbing, cyanosis, or edema. Skin: Warm and dry. Laboratory Data: Reveals a white blood cell count of 12.8, hemoglobin is 14.9 over hematocrit of 42. 5, platelet count is 290. His sodium is 140, potassium 3.9, chloride 107, carbon dioxide 29, BUN is 8, creatinine 0.97, glucose is 103. His total bilirubin was 0.8. His direct component 0.1, on admis stephanie. AST is 15, ALT 24, alkaline phosphatase is 74. His lipase was 97 on admission. The UA was ne gative. He had imaging performed, which included an abdominal ultrasound, officially read as choleli thiasis. The gallbladder demonstrates multiple shadowing gallstones. No pericholecystic fluid or ga llbladder wall thickening. The common bile duct is normal measuring 5 to 6 mm. There was no intrahe patic biliary ductal dilatation. He had an abdominopelvic CT as well, officially read as cholelithia sis without evidence of cholecystitis. A 4.5 cm soft tissue structure of the posterior gastric fundu s may represent recently ingested food. The patient has not recently eaten. This could represent a mass. Assessment And Plan: This is a 38-year-old male who comes in with epigastric abdominal pain and gall stones. 1.IV fluid hydration. 2.Antibiotic coverage. 3.Serial abdominal exams. 4.I have explained the risks, benefits, and alternatives of laparoscopic, possible open cholecystect pippa including but not limited to bleeding, infection, damage to surrounding tissues, need for further operation procedures. The patient would like to consider outpatient cholecystectomy versus inpatien t cholecystectomy. I have explained the risks, benefits, and alternatives of the above-stated plan. We will reassess him in the morning to make a determination whether we are able to perform elective cholecystectomy. However, if his pain continues to get worse or does not improve, I recommend a lapa roscopic cholecystectomy prior to his discharge. The patient agrees with the above stated plan. Thank you for this interesting consult. SHARON/IGOR Voice ID: [id number] Report ID: [id number]
[2018-09-15] MEDS: VANCOMYCIN ORAL SOLN 250 MG/5 ML OSYR PO SCH ×4 (00:06→17:49)
[2018-09-15] MEDS: D50W 25 GM/50 ML SYRINGE IV PRN (00:28)
[2018-09-15] MEDS ORDERED: GLUCAGON 1 MG/VIAL IM PRN (03:25)
[2018-09-15] MEDS ORDERED: D50W 25 GM/50 ML SYRINGE IV PRN (03:25)
[2018-09-15] MEDS: MEPERIDINE HCL 25 MG/0.5 ML IV PRN ×2 (04:17→10:07)
[2018-09-15] MEDS ORDERED: INSULIN -REGULAR HUMAN 50 UNIT/0.5 ML ML SQ SCH ×2 (06:00→11:51)
[2018-09-15 06:11] LABS: Absolute Lymphocytes (CBC) 2.6 K/uL (0.7-4.9); Absolute Monocytes 0.5 K/uL (0.1-1.3); Absolute Neutrophil 4.8 K/uL (1.8-8.0); Basophils % 0.9 % (0-1.3); Eosinophils % 1.6 % (0-4.4); Hematocrit 41.6 % (39.6-49.0); MPV 9.1 fL (7.6-11.3); Monocytes % 6.5 % (3.3-12.3); RBC Red Blood Cell Count 4.75 M/uL (4.33-5.43)
[2018-09-15 06:29] LABS: ALT/SGPT 21 U/L (12-78); AST/SGOT 14 U/L (15-37); Albumin 3.3 g/dL (3.4-5.0); Alkaline Phosphatase 68 U/L (45-117); BUN Blood Urea Nitrogen 9 mg/dL (7-18); Bicarbonate 27 mmol/L (21-32); Bilirubin Total 0.7 mg/dL (0.2-1.0); Glucose Level 78 mg/dL (74-106); Potassium 3.8 mmol/L (3.5-5.1); Protein, Total 6.8 g/dL (6.4-8.2); Sodium Level 140 mmol/L (136-145)
[2018-09-15] MEDS: NA CHLORIDE 0.9% 1,000 ML IV SCH (07:39)
[2018-09-15] MEDS ORDERED: KCL 20 MEQ/100 mL IVPB 20 MEQ/100 ML BAG IV SCH (09:00)
--- NOTE | 2018-09-15 10:01 | P.PN ---
Subjective Date of Service: 09/15/18 Chief Complaint: Abdominal pain Patient states pain is the same intensity, located over entire abdomen, worse in LLQ, RLQ, and epigastrium today Physical Examination - Vital Signs Temperature: 98.3 F Blood Pressure: 107/53 Pulse: 59 Respirations: 18 Pulse Ox (%): 99 - Physical Exam General: Alert, In no apparent distress Gastrointestinal: Other (soft, mild to moderate TTP globally, negative murphys, mild voluntary guarding, mild rebound globally, pain is most intense over distribution of colon) Assessment And Plan - Current Problems (Diagnosis) (1) Abdominal pain Current Visit: Yes Status: Acute Plan: Patient is positive for C.Diff - treat C.Diff with antibiotics, when resolved will re-address gallstones - will not proceed with cholecystectomy - Qualifiers: Abdominal location: epigastric Qualified Code(s): R10.13 - Epigastric pain
[2018-09-15] MEDS: PANTOPRAZOLE 40 MG INJ IVP SCH (10:08)
[2018-09-15] MEDS: CEFTRIAXONE/SWI 1gm 1 GM/10 ML SYR IV SCH (10:08)
[2018-09-15] MEDS ORDERED: POTASSIUM CL SA 10 MEQ TAB PO ONE (10:29)
[2018-09-15] MEDS: D5 0.45 NS 1,000 ML IV SCH ×2 (13:11→21:24)
[2018-09-15] MEDS ORDERED: ENOXAPARIN 40 MG/0.4 ML SQ SCH (17:00)
--- NOTE | 2018-09-15 18:50 | PN ---
Date of Progress Note: 09/15/2018 Subjective: The patient is seen and examined. Chart reviewed and case discussed with RN and Dr. Tabitha gonsalez. The patient will not be going for surgery today as Dr. Bhatt recommends treating the C. diff colitis initially prior to gallbladder surgery. The patient is still having multiple episodes of di arrhea. Did also mention some dark stools. Medications: List reviewed. Objective: Vital Signs: Temperature 97.3, heart rate 64, blood pressure 103/54, respirations 18, O2 95% on room air. General: Awake, alert, oriented x3. Ill-appearing male, morbidly obese. CV: S1, S2. Regular rate and rhythm. Peripheral pulses present. Respiratory: Moving air well bilaterally. No wheezing or stridor. No use of accessory muscles. Gastrointestinal: Abdomen is soft. Tenderness to palpation. No guarding or rigidity. Bowel sounds positive. Extremities: No clubbing, cyanosis, or edema. Neurologic: Nonfocal. Laboratory Data: WBC 8, H and H 14.4 and 41.6, platelets 266. Sodium 140, potassium 3.8, chloride 1 08, CO2 of 27, BUN 9, creatinine 0.74, glucose 78. Hemoglobin A1c is 5.3%. Calcium 8.6. Assessment And Plan: A 38-year-old male with: 1.Acute abdominal pain, generalized, likely secondary to Clostridium difficile as well as acute chol ecystitis. At this point, no surgery is recommended due to C. diff colitis and we will continue anti biotics for now. We will start on clear liquids. Continue antiemetics and pain medications. 2.Clostridium difficile colitis. We will continue oral vancomycin. Dr. Farley is on board. The patient is still having multiple loose watery stools. We will assess the patient's tolerance for p.o . intake and if stools improve in consistency and decrease in frequency. 3.Abnormal CT scan showing 4.5 cm soft tissue structure in the posterior gastric fundus. After juan leslie with GI and Surgery, they feel that this is likely food compared to mass. There is no previous mass seen on old CT scans and recent scope in April was clear. No additional intervention recomme nded at this time by GI. 4.Morbid obesity, body mass index of 40. 5.Diabetes mellitus type 2 without long-term use of insulin without complications. The patient's he moglobin A1c is 5.3%. We will discontinue blood glucose checks for now. 6.Hyperlipidemia. We will continue home medications. 7.Gastrointestinal and deep venous thrombosis prophylaxis. We will add Lovenox as no surgery is samantha ng planned. We will continue Protonix. Plan: Anticipate discharge in the next 24-48 hours depending on clinical response. JAZMIN Voice ID: [id number] Report ID: [id number]
[2018-09-16] MEDS: VANCOMYCIN ORAL SOLN 250 MG/5 ML OSYR PO SCH ×3 (00:04→11:58)
[2018-09-16] MEDS: D5 0.45 NS 1,000 ML IV SCH ×2 (05:00→09:16)
[2018-09-16 05:10] LABS: Absolute Lymphocytes (CBC) 2.8 K/uL (0.7-4.9); Absolute Monocytes 0.6 K/uL (0.1-1.3); Absolute Neutrophil 4.2 K/uL (1.8-8.0); Basophils % 1.2 % (0-1.3); Eosinophils % 1.9 % (0-4.4); Hematocrit 44.5 % (39.6-49.0); Lymphocytes % 35.7 % (15.3-44.8); Monocytes % 7.3 % (3.3-12.3); RBC Red Blood Cell Count 5.06 M/uL (4.33-5.43)
[2018-09-16 05:23] LABS: ALT/SGPT 21 U/L (12-78); AST/SGOT 15 U/L (15-37); Albumin 3.6 g/dL (3.4-5.0); Alkaline Phosphatase 76 U/L (45-117); BUN Blood Urea Nitrogen 7 mg/dL (7-18); Bicarbonate 28 mmol/L (21-32); Bilirubin Total 0.6 mg/dL (0.2-1.0); Glucose Level 98 mg/dL (74-106); Potassium 3.9 mmol/L (3.5-5.1); Protein, Total 7.3 g/dL (6.4-8.2); Sodium Level 139 mmol/L (136-145)
[2018-09-16] MEDS ORDERED: HYDROCODONE/APAP 5/325 MG TAB PO PRN (09:00)
[2018-09-16] MEDS ORDERED: POTASSIUM CL SA 10 MEQ TAB PO ONE (09:00)
[2018-09-16] MEDS: PANTOPRAZOLE 40 MG INJ IVP SCH (09:06)
--- NOTE | 2018-09-16 09:58 | P.PN ---
Subjective Date of Service: 09/16/18 Chief Complaint: Abdominal pain Patient states pain is gone today completely. Had some diarrhea last evening, no emesis or nausea Physical Examination - Vital Signs Temperature: 97 F Blood Pressure: 109/64 Pulse: 58 Respirations: 18 Pulse Ox (%): 96 - Physical Exam General: Alert, In no apparent distress, Cooperative Respiratory: Clear to auscultation bilaterally Gastrointestinal: Soft and benign, Non-distended, No ascites, No tenderness, No rebound, No guarding Assessment And Plan - Current Problems (Diagnosis) (1) Abdominal pain Current Visit: Yes Status: Acute Plan: Patient is positive for C.Diff - treat C.Diff with antibiotics, when resolved will re-address gallstones - serial exams - no surgical intervention, advance diet Qualifiers: Abdominal location: epigastric Qualified Code(s): R10.13 - Epigastric pain
[2018-09-16 10:31] VITALS: O2SAT 96
[2018-09-16 13:04] VITALS: BP 96/55; TEMP 97.1
--- NOTE | 2018-09-17 12:31 | DS ---
Date of Discharge: 09/16/2018 Consultants: Alcides Espinoza M.D. with GI and Dr. Ranjan Bhatt M.D. with General Surgery. Procedures: None. Admitting Diagnoses: 1. Abdominal pain, generalized. 2. Abnormal CT scan, 4.5 cm soft tissue structure within the posterior gastric fundus. 3. Leukocytosis with neutrophilia. 4. Obesity, BMI of 39.5. 5. Diabetes mellitus type 2, [id number], with hyperglycemia. 6. Hyperlipidemia. Discharge Diagnoses: 1. Acute abdominal pain, generalized, resolved. 2. Acute Clostridium difficile colitis, on oral vancomycin. 3. Abnormal CT with a 4.5 cm soft tissue structure in the posterior gastric fundus, thought to be food. No mass. 4. Morbid obesity, BMI of 40. 5. Diabetes mellitus type 2 without long-term use of insulin, without complications. 6. Hyperlipidemia. Hospital Course: The patient is a 38-year-old male with questionable history of ulcerative colitis, diabetes, comes in with epigastric pain. The patient also had some diarrhea. CT scan was done with ultrasound of the abdomen, which showed colitis. The patient was also found to have gallstones and he had an elevated white count [id number]. There was also a 4.5 cm soft tissue structure within the posterior gastric fundus, representing recently ingested food. However, this was thought to be due to food and not a mass, as patient recently had a scope done in April and recent CT scan did not show any mass, GI did not recommend any additional workup at this time. The patient was seen by Surgery for cholelithiasis and possible cholecystitis. He did well on antibiotics. Dr. Bhatt did not recommend any surgery at this time due to his C diff inflammation; recommended outpatient followup. The patient improved with oral vancomycin. His stools became more formed and decreased in frequency. He was able to tolerate a GI soft diet. The patient was then cleared for discharge and was sent home in a stable condition. Activity: As tolerated. Diet: Diabetic, bland diet. Followup: Follow up with PCP in 2 to 3 days. Follow up with GI, Dr. Farley, in 2 weeks. Follow up with surgeon, Dr. Bhatt, in 2 weeks. Return to ER for worsening condition. Medications: As per medication reconciliation list. Physical Examination: General: Awake, alert, oriented x3. Morbidly obese male. CV: S1, S2. No murmurs. RESPIRATORY: Moving air well bilaterally. No wheezing. Gastrointestinal: Abdomen is soft. No tenderness to palpation. Positive bowel sounds. Extremities: No clubbing, cyanosis, or edema. Neurologic: Nonfocal. Total time spent discharging patient was 32 minutes. /IGOR Voice ID: [id number] Report ID: [id number] ÁNGEL
== END 2018-09-16 16:15 | disposition home or self-care (01) | DRG 445 ==
LOC: ER 10:35 → INTOOBSV 15:14 → OBSVTOIN 15:14 → ERHOLD 15:14 → 2ND 17:26 → OBSVTOIN 09-15 14:18
PROVIDERS: ADMIT Family Medicine; ATTEND Family Medicine
DX: K80.00 Calculus of gallbladder with acute cholecystitis without obstruction (principal); Z68.41 Body mass index [BMI] 40.0-44.9, adult; A04.72 Enterocolitis due to Clostridium difficile, not specified as recurrent; D72.829 Elevated white blood cell count, unspecified; E66.01 Morbid (severe) obesity due to excess calories; E11.65 Type 2 diabetes mellitus with hyperglycemia; E78.5 Hyperlipidemia, unspecified; Z79.4 Long term (current) use of insulin
CPT/HCPCS: 36415; 74177; 76705; 80048; 80053; 80076; 81003; 82962; 83036; 83690; 83735; 84100; 85025; 87493; 94760; 96361; 96365; 96367; 96374; 96375; 99285; C9113; G0378; J0696; J1650; J2175; J2405; J7030; Q9967

== ENCOUNTER 2019-04-14 13:41 | Emergency (ER) | payer BC ==
--- NOTE | 2019-04-14 14:39 | RAD REPORT ---
EXAM DESCRIPTION: RAD - Shoulder Left 2 View - 04/14/2019 2:31 pm CLINICAL HISTORY: PAIN COMPARISON: No comparisons FINDINGS: No fracture or dislocation seen.
[2019-04-14] MEDS ORDERED: KETOROLAC 30 MG/ML INJ ONE (14:43)
[2019-04-14] MEDS ORDERED: HYDROCODONE/APAP 7.5/325 MG TAB ONE (14:43)
--- NOTE | 2019-04-14 14:58 | ER ---
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 Transition of care: patient was not received from another setting of care. Onset of symptoms was April 14, 2019. Risk Assessment: Do you want to hurt yourself or someone else? Patient reports no desire to harm self or others. Initial Sepsis Screen: Does the patient meet any 2 criteria? No. Patient's initial sepsis screen is negative. Does the patient have a suspected source of infection? No. Patient's initial sepsis screen is negative. Care prior to arrival: None. 13:49 Method Of Arrival: Ambulatory tw2 13:49 Acuity: DUTCH 4 tw2 Triage Assessment: 13:50 General: Appears uncomfortable, obese, Behavior is calm, cooperative, appropriate for tw2 age. Pain: Complains of pain in anterior aspect of left shoulder and posterior aspect of left shoulder. Musculoskeletal: Range of motion: limited in left shoulder. Injury Description: pt reports lifting something in an awkward position but that it was not heavy. Historical: - Allergies: 13:52 NKA; tw2 - Home Meds: 13:52 None [Active]; tw2 - PMHx: 13:52 Ulcers; ulcerative colitis; High Cholesterol; Diabetes - NIDDM; tw2 - PSHx: 13:52 Knee surgery; tw2 - Immunization history:: Adult Immunizations. - Social history:: Smoking status: . - Ebola Screening: : Patient denies travel to an Ebola-affected area in the 21 days before illness onset. Screenin:02 Abuse screen: Denies threats or abuse. Nutritional screening: No deficits noted. tw2 Tuberculosis screening: No symptoms or risk factors identified. Fall Risk None identified. Assessment: 14:00 General: Appears in no apparent distress. well groomed, well developed, well nourished, sg Behavior is calm, cooperative, appropriate for age. Pain: Complains of pain in left shoulder Quality of pain is described as aching. Neuro: Level of Consciousness is awake, alert, obeys commands, Oriented to person, place, time. Cardiovascular: Patient's skin is warm and dry. Chest pain is denied. Respiratory: Airway is patent Respiratory effort is even, unlabored, Respiratory pattern is regular, symmetrical. GI: Abdomen is round non-distended. Derm: Skin is pink, warm \T\ dry. Musculoskeletal: Circulation, motion, and sensation intact. Range of motion: intact in all extremities. 15:23 Reassessment: Patient appears in no apparent distress at this time. No changes from tw2 previously documented assessment. Patient and/or family updated on plan of care and expected duration. Pain level reassessed. Patient is alert, oriented x 3, equal unlabored respirations, skin warm/dry/pink. Vital Signs: 13:50 BP 131 / 92; Pulse 85; Resp 18; Temp 97(TE); Pulse Ox 97% on R/A; Weight 129.27 kg (R); tw2 Height 5 ft. 8 in. (172.72 cm); Pain 10/10; 13:50 Body Mass Index 43.33 (129.27 kg, 172.72 cm) tw2 ED Course: 13:44 Patient arrived in ED. mr 13:44 Gregor Solano DO is Private Physician. mr 13:50 Triage completed. tw2 13:50 Arm band placed on. tw2 13:58 Avery Guerra RN is Primary Nurse. sg 13:59 Aaron Patten PA is PHCP. jr8 13:59 Raoul Barrios MD is Attending Physician. jr8 14:02 Bed in low position. Pillow given. tw2 14:45 XRAY Shoulder LEFT 2 view In Process Unspecified. EDMS 14:56 Avery Henderson MD is Referral Physician. jr8 15:03 Sling applied to left arm. jb1 15:22 No provider procedures requiring assistance completed. Patient did not have IV access tw2 during this emergency room visit. Administered Medications: 14:40 Drug: [place] (7.5 mg-325 mg) 1 tabs Route: PO; sg 15:15 Follow up: Response: No adverse reaction; Pain is decreased sg 15:26 Follow up: Response: RASS: Alert and Calm (0) sg 14:47 Drug: TORadol - Ketorolac 15 mg Route: IM; Site: right deltoid; sg 15:15 Follow up: Response: No adverse reaction; Pain is decreased sg Outcome: 14:56 Discharge ordered by MD. jones 15:22 Discharged to home ambulatory. tw2 15:22 Condition: stable 15:22 Discharge instructions given to patient, Instructed on discharge instructions, follow up and referral plans. no drinking with medication, no driving heavy equipment, medication usage, Demonstrated understanding of instructions, follow-up care, medications, Prescriptions given X 2. 15:23 Patient left the ED. tw2 Signatures: Dispatcher [employer] EDMS Robel Prado Steven, RN RN Beatris Bradford mr Aaron Patten PA PA jr8 Wise, Tara, RN RN tw2
--- NOTE | 2019-04-14 14:58 | EDPHYS ---
Physician Documentation [facility] Name: Eros Yan Age: 39 yrs Sex: Male : 1980 Arrival Date: 04/14/2019 Time: 13:44 Bed 5 Private MD: Gregor Solano H ED Physician Raoul Barrios HPI: 04/14 14:51 This 39 yrs old Male presents to ER via Ambulatory with complaints of Shoulder jr8 Injury. 14:51 The patient or guardian complains of decreased range of motion, pain. left shoulder. jr8 Context: The problem was sustained at home, resulted from lifting or carrying, The patient experiences decreased range of motion, The patient reports no obvious deformity. Onset: The symptoms/episode began/occurred acutely, today. Modifying factors: the symptoms are alleviated by nothing. The symptoms are aggravated by movement. Associated signs and symptoms: The patient has no apparent associated signs or symptoms. Severity of symptoms: At their worst the symptoms were moderate, in the emergency department the symptoms are unchanged. The patient has not experienced similar symptoms in the past. The patient has not recently seen a physician. Patient stated that he was carrying boxes and one was caught. Jerked the box and felt pulling sensation in left shoulder. Historical: - Allergies: 13:52 NKA; tw2 - Home Meds: 13:52 None [Active]; tw2 - PMHx: 13:52 Ulcers; ulcerative colitis; High Cholesterol; Diabetes - NIDDM; tw2 - PSHx: 13:52 Knee surgery; tw2 - Immunization history:: Adult Immunizations. - Social history:: Smoking status: . - Ebola Screening: : Patient denies travel to an Ebola-affected area in the 21 days before illness onset. ROS: 14:51 Eyes: Negative for injury, pain, redness, and discharge, ENT: Negative for injury, jr8 pain, and discharge, Neck: Negative for injury, pain, and swelling, Cardiovascular: Negative for chest pain, palpitations, and edema, Respiratory: Negative for shortness of breath, cough, wheezing, and pleuritic chest pain, Abdomen/GI: Negative for abdominal pain, nausea, vomiting, diarrhea, and constipation, Back: Negative for injury and pain, Skin: Negative for injury, rash, and discoloration, Neuro: Negative for headache, weakness, numbness, tingling, and seizure. 14:51 MS/extremity: Positive for decreased range of motion, pain, tenderness, of the left shoulder. Exam: 14:51 Eyes: Pupils equal round and reactive to light, extra-ocular motions intact. Lids and jr8 lashes normal. Conjunctiva and sclera are non-icteric and not injected. Cornea within normal limits. Periorbital areas with no swelling, redness, or edema. ENT: Nares patent. No nasal discharge, no septal abnormalities noted. Tympanic membranes are normal and external auditory canals are clear. Oropharynx with no redness, swelling, or masses, exudates, or evidence of obstruction, uvula midline. Mucous membranes moist. Neck: Trachea midline, no thyromegaly or masses palpated, and no cervical lymphadenopathy. Supple, full range of motion without nuchal rigidity, or vertebral point tenderness. No Meningismus. Cardiovascular: Regular rate and rhythm with a normal S1 and S2. No gallops, murmurs, or rubs. Normal PMI, no JVD. No pulse deficits. Respiratory: Lungs have equal breath sounds bilaterally, clear to auscultation and percussion. No rales, rhonchi or wheezes noted. No increased work of breathing, no retractions or nasal flaring. Abdomen/GI: Soft, non-tender, with normal bowel sounds. No distension or tympany. No guarding or rebound. No evidence of tenderness throughout. Back: No spinal tenderness. No costovertebral tenderness. Full range of motion. Skin: Warm, dry with normal turgor. Normal color with no rashes, no lesions, and no evidence of cellulitis. Neuro: Awake and alert, GCS 15, oriented to person, place, time, and situation. Cranial nerves II-XII grossly intact. Motor strength 5/5 in all extremities. Sensory grossly intact. Cerebellar exam normal. Normal gait. 14:51 Musculoskeletal/extremity: Extremities: grossly normal except: noted in the left shoulder: decreased ROM, pain, tenderness, Circulation is intact in all extremities. Sensation intact. Vital Signs: 13:50 BP 131 / 92; Pulse 85; Resp 18; Temp 97(TE); Pulse Ox 97% on R/A; Weight 129.27 kg (R); tw2 Height 5 ft. 8 in. (172.72 cm); Pain 10/10; 13:50 Body Mass Index 43.33 (129.27 kg, 172.72 cm) tw2 Procedures: 14:56 Splinting: Splint applied to left shoulder using sling, applied by tech. Examined by jr8 me, post splint application: neurovascular intact, 2+ distal pulses palpable, brisk capillary refill noted, Patient tolerated well. MDM: 14:09 Patient medically screened. jr8 14:56 Data reviewed: vital signs, nurses notes, radiologic studies, plain films. Data jr8 interpreted: Pulse oximetry: on room air is 97 %. Interpretation: normal. Counseling: I had a detailed discussion with the patient and/or guardian regarding: the historical points, exam findings, and any diagnostic results supporting the discharge/admit diagnosis, radiology results, the need for outpatient follow up, a orthopedic surgeon, to return to the emergency department if symptoms worsen or persist or if there are any questions or concerns that arise at home. 04/14 14:18 Order name: XRAY Shoulder LEFT 2 view; Complete Time: 14:56 jr8 04/14 14:56 Order name: Sling; Complete Time: 15:04 jr8 Administered Medications: 14:40 Drug: [place] (7.5 mg-325 mg) 1 tabs Route: PO; sg 15:15 Follow up: Response: No adverse reaction; Pain is decreased sg 15:26 Follow up: Response: RASS: Alert and Calm (0) sg 14:47 Drug: TORadol - Ketorolac 15 mg Route: IM; Site: right deltoid; sg 15:15 Follow up: Response: No adverse reaction; Pain is decreased sg Disposition: 15:58 Co-signature as Attending Physician, Raoul Barrios MD I agree with the assessment and kdr plan of care. Disposition: 04/14/19 14:56 Discharged to Home. Impression: Pain in left shoulder. - Condition is Stable. - Discharge Instructions: Joint Pain, Shoulder Pain. - Prescriptions for meloxicam 15 mg Oral tablet - take 1 tablet by ORAL route once daily As needed; 20 tablet. Robaxin 500 mg Oral Tablet - take 2 tablet by ORAL route every 6 hours As needed; 40 tablet. - Medication Reconciliation Form, Thank You Letter, Antibiotic Education, Prescription Opioid Use form. - Follow up: Avery Henderson MD; When: 2 - 3 days; Reason: Recheck today's complaints, Continuance of care, Re-evaluation by your physician. - Problem is new. - Symptoms have improved. Signatures: Dispatcher [employer] EDMS Avery Guerra, RN RN Raoul Barrios MD MD [facility] Aaron Patten PA PA jr8 Kelli Chambers RN RN tw2 Corrections: (The following items were deleted from the chart) 15:23 14:56 04/14/2019 14:56 Discharged to Home. Impression: Pain in left shoulder. Condition tw2 is Stable. Forms are Medication Reconciliation Form, Thank You Letter, Antibiotic Education, Prescription Opioid Use. Follow up: Avery Henderson; When: 2 - 3 days; Reason: Recheck today's complaints, Continuance of care, Re-evaluation by your physician. Problem is new. Symptoms have improved. jr8
[2019-04-14 15:30] VITALS: BP 131/92; TEMP 97; O2SAT 97
== END 2019-04-14 15:23 | disposition home or self-care (01) ==
LOC: ER 13:41
DX: M25.512 Pain in left shoulder (principal)
CPT/HCPCS: 96372; 99284